=== PATIENT | male | born 1980 ===

== ENCOUNTER → 2023-09-10 | Outpatient (CLI) | payer OTHER | LOC: MHCPAIN 07:23 | DX: M47.812 Spondylosis without myelopathy or radiculopathy, cervical region (principal) | CPT/HCPCS: J0461; J1100; Q9967 ==

== ENCOUNTER → 2023-10-05 | Outpatient (CLI) | payer OTHER | LOC: MHCPAIN 09:45 | DX: M54.12 Radiculopathy, cervical region (principal); M47.892 Other spondylosis, cervical region; M48.02 Spinal stenosis, cervical region | CPT/HCPCS: G0463 ==

== ENCOUNTER → 2023-12-17 | Outpatient (CLI) | payer OTHER ==
[~2023-12-17] MED LIST: Iohexol 300 - 10 ML VIAL ONE; Lidocaine PF 2% (20 MG/ML) 2 ML VIAL ONE
== END ==
LOC: MHCPAIN 09:22
DX: M54.12 Radiculopathy, cervical region (principal)
CPT/HCPCS: J1010; Q9967

== ENCOUNTER → 2024-04-21 | Outpatient (CLI) | payer OTHER | LOC: MHCPAIN 09:41 | DX: M47.812 Spondylosis without myelopathy or radiculopathy, cervical region (principal); M54.2 Cervicalgia | CPT/HCPCS: J0665 ==